=== PATIENT | female | born 1965 | race Caucasian/White ===

== ENCOUNTER 2022-01-13 08:59 | Emergency (ER) | payer OTHER ==
[~2022-01-13] VITALS: Ht 162.6 cm; Wt 89.4 kg
[2022-01-13] MEDS ORDERED: FLEXERIL5 MG PO (10:02)
[2022-01-13] MEDS ORDERED: NAPROXEN500 MG PO (10:02)
== END 2022-01-13 10:14 | disposition home or self-care (01) ==
LOC: FER 08:59
DX: S39.012A Strain of muscle, fascia and tendon of lower back, initial encounter (principal); Z88.0 Allergy status to penicillin; Z88.2 Allergy status to sulfonamides; V43.52XA Car driver injured in collision with other type car in traffic accident, initial encounter
CPT/HCPCS: 72110